=== PATIENT | female | born 1950 | race Caucasian/White ===

== ENCOUNTER → 2017-12-20 | Outpatient (CLI) | payer MEDICARE ==
--- NOTE | 2017-12-20 15:05 | BD ---
EXAMINATION TYPE: Axial Bone Density DATE OF EXAM: 12/20/2017 COMPARISON: 2011 Dexa Bone Density CLINICAL HISTORY: post menopausal Height: 5' Weight: 176 FRAX RISK QUESTIONS: History of Fracture in Adulthood: y Secondary Osteoporosis: 3. Menopause before 45: y RISK FACTORS HISTORY OF: Postmenopausal woman: Take estrogen How lon years MEDICATIONS: Additional Medications: high blood pressure, Additional History: non Hodgkin's lymphoma 2016, chemotherapy EXAM MEASUREMENTS: Bone mineral densitometry was performed using the [employer] System. Bone mineral density as measured about the Lumbar spine is: ----- L1-L4(G/cm2): 1.207 T Score Values are as follows: ----- L2: 0.7 ----- L3: 0.9 ----- L4: -0.1 ----- L1-L4: 0.2 Bone mineral density has: Increased 6.0% since study of: 05/22/2012 Bone mineral density about the R hip (g/cm2): 0.812 Bone mineral density about the L hip (g/cm2): 0.843 T Score values are as follows: -----R Neck: -1.6 -----L Neck: -1.4 -----R Total: -1.1 -----L Total: -0.6 Bone mineral density has: Decreased -7.9% since study of: 05/22/2012 IMPRESSION: Osteopenia (T Score between -2.5 and -1) at the femoral neck level in both hips remains present. There remains slightly increased risk of fracture and the patient may be considered for treatment. Re-Screen 2-5 years. NOTE: T-SCORE=SD OF THE YOUNG ADULT MEAN.
--- NOTE | 2017-12-21 12:44 | MM ---
Reason for exam: screening (asymptomatic). Last mammogram was performed 1 year and 11 months ago. History: Patient is postmenopausal. Family history of premenopausal breast cancer in mother at age 40. Taking estrogen for 27 years beginning at age 33. Physical Findings: A clinical breast exam by your physician is recommended on an annual basis and results should be correlated with mammographic findings. MG 3D Screening Mammo W/Cad Bilateral CC and MLO view(s) were taken. Prior study comparison: January 29, 2016, right breast MG 3d diag mammo w/cad RT. July 11, 2015, right breast MG 3d work up w/cad RT. The breast tissue is heterogeneously dense. This may lower the sensitivity of mammography. There is chronic nodularity in the left breast. No significant changes when compared with prior studies. ASSESSMENT: Benign, BI-RAD 2 RECOMMENDATION: Routine screening mammogram of both breasts in 1 year.
== END | disposition home or self-care (01) ==
LOC: RADMAMWWP 14:20
PROVIDERS: ATTEND Internal Medicine
DX: Z12.31 Encounter for screening mammogram for malignant neoplasm of breast (principal); M85.852 Other specified disorders of bone density and structure, left thigh; M85.851 Other specified disorders of bone density and structure, right thigh; N95.1 Menopausal and female climacteric states
CPT/HCPCS: 77063; 77067; 77080

== ENCOUNTER → 2019-08-17 | Outpatient (CLI) | payer MEDICARE ==
--- NOTE | 2019-08-17 14:41 | MM ---
Reason for exam: screening (asymptomatic). Last mammogram was performed 1 year and 8 months ago. History: Patient is postmenopausal and has history of other cancer at age 67. Family history of premenopausal breast cancer in mother at age 40. Taking estrogen for 27 years beginning at age 33. Physical Findings: A clinical breast exam by your physician is recommended on an annual basis and results should be correlated with mammographic findings. MG 3D Screening Mammo W/Cad Bilateral CC and MLO view(s) were taken. Prior study comparison: December 20, 2017, bilateral MG 3d screening mammo w/cad. January 29, 2016, right breast MG 3d diag mammo w/cad RT. There are scattered fibroglandular densities. No suspicious abnormality. No significant changes when compared with prior studies. ASSESSMENT: Negative, BI-RAD 1 RECOMMENDATION: Routine screening mammogram of both breasts in 1 year.
== END | disposition home or self-care (01) ==
LOC: RADMAMWWP 10:53
PROVIDERS: ATTEND Internal Medicine
DX: Z12.31 Encounter for screening mammogram for malignant neoplasm of breast (principal)
CPT/HCPCS: 77063; 77067

== ENCOUNTER → 2022-08-27 | Outpatient (CLI) | payer MEDICARE ==
--- NOTE | 2022-08-27 08:26 | CT ---
EXAMINATION TYPE: CT sinus wo con CT DLP: 618.10 mGycm, Automated exposure control for dose reduction was used. DATE OF EXAM: 08/27/2022 7:06 AM COMPARISON: CT sinuses 06/18/2015. CLINICAL INDICATION:Female, 72 years old with history of J01.90 chronic sinusitis; PHH, Chronic sinus itis CONTRAST: None. TECHNIQUE: Multiple thin axial images were obtained through the paranasal sinuses without the use of IV contrast. Additional coronal and sagittal reformatted images were submitted for evaluation. FINDINGS: Extensive opacification of the paranasal sinuses redemonstrated. Near complete opacification of the r ight maxillary sinus with moderate mucosal thickening of the left mastoid sinus. Near complete opacif ication of the bilateral frontal and ethmoid sinuses. Development of a calcification within the right ethmoid sinus measuring up to 7 mm. Complete opacification of the right sphenoid sinus with minimal mucosal thickening of the left sphenoid sinus. Postsurgical changes from bilateral antrostomy with op acification of the right maxillary sinus antrostomy site. No acute fracture. Bilateral aphakia. The visualized portions of the brain are unremarkable. IMPRESSION: Postsurgical changes with continued severe pansinusitis.
== END | disposition home or self-care (01) ==
LOC: RADCTMAIN 06:49
PROVIDERS: ATTEND Internal Medicine
DX: J32.4 Chronic pansinusitis (principal)
CPT/HCPCS: 70486

== ENCOUNTER → 2022-10-06 | Outpatient (CLI) | payer MEDICARE | END | disposition home or self-care (01) | LOC: LABWHC1 13:55 | PROVIDERS: ATTEND Otolaryngology | DX: I10 Essential (primary) hypertension (principal); R94.31 Abnormal electrocardiogram [ECG] [EKG] | CPT/HCPCS: 36415; 93005 ==

== ENCOUNTER → 2022-10-28 | Outpatient (CLI) | payer MEDICARE ==
[2022-10-28 21:54] LABS: Anion Gap 11.4 mmol/L (10.00-18.00); Blood Urea Nitrogen 14.4 mg/dL (9.0-27.0); Calcium 9.7 mg/dL (8.7-10.3); Carbon Dioxide 26.4 mmol/L (20.0-27.5); Magnesium 2.1 mg/dL (1.5-2.4); Non-African American GFR(CKD) 83.7 (60.0-200.0); Potassium 4.8 mmol/L (3.5-5.5)
[2022-10-28 21:59] LABS: Immunoglobulin M 71.7 mg/dL (40.0-280.0)
[2022-10-29 10:54] LABS: IgG Subclass 1 269.4 mg/dL (382.40-928.60); IgG Subclass 3 38.8 mg/dL (21.82-176.00)
== END | disposition home or self-care (01) ==
LOC: LABWHC1 12:09
PROVIDERS: ATTEND Otolaryngology
DX: J01.91 Acute recurrent sinusitis, unspecified (principal)
CPT/HCPCS: 36415; 80048; 82784; 82787; 83735

== ENCOUNTER → 2023-04-25 | Outpatient (CLI) | payer MEDICARE ==
--- NOTE | 2023-04-25 12:02 | CT ---
EXAMINATION TYPE: CT ChestAbdPelvis wo con CT DLP: 518.5 mGycm, Automated exposure control for dose reduction was used. DATE OF EXAM: 04/25/2023 11:55 AM COMPARISON: 12/05/2015. CLINICAL INDICATION:Female, 73 years old with history of C85.9 LYMPHOMA; [facility], f/u lymphoma Technique: Multiple axial images of the chest, abdomen, and pelvis were obtained. Two-dimensional cor onal and sagittal reconstructions were obtained. Contrast used: mL of , Oral contrast used: with Oral Contrast Findings: CHEST: LUNGS/ PLEURA: The lung parenchyma appears unremarkable. AIRWAY: Patent and unremarkable. HEART: Heart is mildly enlarged for size. MEDIASTINUM: No gross evidence of adenopathy. VASCULATURE: No aortic aneurysm. MUSCULOSKELETAL: No acute osseous abnormalities. SOFT TISSUES/LYMPH NODES: Unremarkable. LOWER NECK: No significant findings. ABDOMEN: ABDOMEN LIVER: Unremarkable GALLBLADDER AND BILE DUCTS: Unremarkable. PANCREAS: Lipomatous pseudohypertrophy changes. SPLEEN: Unremarkable. ADRENAL GLANDS: Unremarkable. KIDNEYS AND URETERS: No evidence of hydronephrosis or renal calculus. The ureters are unremarkable. Left renal cyst. Atrophy changes of the kidneys bilaterally. PELVIS BLADDER: Unremarkable REPRODUCTIVE: Unremarkable. ABDOMEN & PELVIS STOMACH AND BOWEL: No evidence of bowel obstruction. Scattered colonic diverticula present. There is some mild wall thickening of the sigmoid colon measuring up to 6 mm. PERITONEUM: No evidence of pneumoperitoneum. Stable right lower abdomen fluid collection measuring 7. 1 x 3.0 previously 7.1 x 2.8 cm. VASCULATURE: No evidence of aortic aneurysm. MUSCULOSKELETAL: No acute osseous abnormalities LYMPH NODES: No gross evidence for lymphadenopathy. SOFT TISSUE/ABDOMINAL WALL: Unremarkable IMPRESSION: 1. Overall stable exam without evidence of lymphadenopathy or mass. 2. Sigmoid colon wall thickening superficially correlate for colitis. 3. Persistent right lower abdomen fluid collection which may be fractionally larger versus differenc es in measuring technique compared to 12/05/2015
== END | disposition home or self-care (01) ==
LOC: RADCTMAIN 11:07
PROVIDERS: ATTEND Internal Medicine Hematology & Oncology
DX: C85.90 Non-Hodgkin lymphoma, unspecified, unspecified site (principal); K63.89 Other specified diseases of intestine
CPT/HCPCS: 71250; 74176

== ENCOUNTER → 2024-03-23 | Outpatient (CLI) | payer MEDICARE ==
--- NOTE | 2024-03-23 13:24 | US ---
EXAMINATION TYPE: US venous doppler duplex LE RT DATE OF EXAM: 03/23/2024 1:10 PM COMPARISON: NONE CLINICAL INDICATION: Female, 74 years old with history of M79.661 PAIN IN RIGHT LOWER LEG R22.41 LOCA LIZED S; rt post knee pain TECHNIQUE: The lower extremity deep venous system is examined utilizing real time linear array sonog carlitos with graded compression, color doppler sonography, and spectral doppler. SIDE PERFORMED: Right FINDINGS: VESSELS IMAGED: Common Femoral Vein Deep Femoral Vein Greater Saphenous Vein * Femoral Vein Popliteal Vein Small Saphenous Vein * Proximal Calf Veins (* superficial vessels) Right Leg: Negative for DVT Grayscale, color doppler, spectral doppler imaging performed of the deep veins of the lower extremiti es. There is a possible effusion behind the knee IMPRESSION: 1. No ultrasound evidence for deep venous thrombosis of either lower extremity. 2. There is a small amount of fluid posterior to the knee possibly related to a popliteal fossa cyst or small knee effusion. [facility], , 03/23/2024 1:22 PM
== END ==
LOC: RADUSWWP 12:42
PROVIDERS: ATTEND Internal Medicine
DX: R22.41 Localized swelling, mass and lump, right lower limb (principal)

== ENCOUNTER 2024-05-15 21:43 | Emergency (ER) | payer MEDICARE ==
--- NOTE | 2024-05-15 22:23 | ED ---
General Adult HPI - General Source: patient, family, RN notes reviewed <Kirsten Zamudio - Last Filed: 05/15/24 22:21> - General Source: patient, family, RN notes reviewed Limitations: no limitations <Kyle Espinosa - Last Filed: 05/16/24 02:23> - General Stated complaint: poss allergic reaction to antibiotic Time Seen by Provider: 05/15/24 22:00 - History of Present Illness Initial comments: Quick [id number] female presented to the emergency department for complaint of nausea, vomiting, chills. she started an antibiotic prescribed by her PCP earlier today for a UTI and possible pyelonephritis and since has been experiencing nausea and vomiting. endorses dysuria, cloudy urine, right flank pain with radiation into her mid abdomen. (Kirsten Zamudio) 74-year-old female presents emergency department complaining chills, nausea. Patient states she saw her PCP earlier today and was diagnosed with a UTI. Patient states that she think she is having a reaction to the medication because if she became more nauseated. Patient states was cloudy but denies any signific ant frequency denies any abdominal pain or back pain at this time. Denies any chest pain or shortness of breath she has non-Hodgkin's. Patient states she has had no URI symptoms. No other complaints. (Kyle Espinosa) - Related Data Home Medications Medication Instructions Recorded Confirmed Ergocalciferol (Vitamin D2) 50,000 unit PO TU 11/13/15 12/01/15 [Drisdol] Fluticasone Nasal [place] [Flonase 2 sprays EA NOSTRIL DAILY 11/13/15 12/01/15 Nasal [place]] Multivitamins, Thera [Multivitamin 1 tab PO DAILY 11/13/15 12/01/15 (formulary)] Propranolol HCl [Inderal Xl] 80 mg PO BID 11/13/15 12/01/15 amLODIPine BESYLATE [Amlodipine 5 mg PO DAILY 11/13/15 12/01/15 Besylate] cloNIDine HCL 0.3 mg PO BID 11/13/15 12/01/15 estradioL [Estradiol] 0.5 mg PO HS 11/13/15 12/01/15 rOPINIRole HCL [Requip] 0.5 mg PO BID 11/13/15 12/01/15 HYDROcodone/IBUPROFEN [Vicoprofen 1 tab PO Q4HR PRN 12/01/15 12/01/15 7.5-200 mg Tablet] Pantoprazole [Protonix] 40 mg PO AC-BRKFST 12/01/15 12/01/15 rOPINIRole HCL [Requip] 0.5 mg PO HS 12/01/15 12/01/15 Allergies Allergy/AdvReac Type Severity Reaction Status Date / Time cefdinir AdvReac Nausea & Verified 05/15/24 22:32 Vomiting Review of Systems ROS Other: All systems not noted in ROS Statement are negative. <Kirsten Zamudio - Last Filed: 05/15/24 22:21> ROS Other: All systems not noted in ROS Statement are negative. <Kyle Espinosa - Last Filed: 05/16/24 02:23> ROS Statement: Those systems with pertinent positive or pertinent negative responses have been documented in the HPI. Past Medical History Past Medical History: Blood Disorder, Deep Vein Thrombosis (DVT) Additional Past Medical History / Comment(s): "blood clots as child-denies any bleeding or clotting factor disorders."kink in bowel-bm's not regular"constipation, hemorrhoids, was told beofre that she had an enlarged heart,beginnings of cataracts in rt eye, shingles x4-last time was aprrox 1.5 years ago, uti's, anemia. has had several allergic reactions-but so far they can't figure out the offending agents. History of anemia during History of Any Multi-Drug Resistant Organisms: ESBL Date of last positivie culture/infection: 06/16/20 ESBL MDRO Source:: URINE Past Surgical History: Section, Hysterectomy Additional Past Surgical History / Comment(s): nasal sx- cartilage shaved, temporal artery sx , 2 c-sections, partial hysterectomt then 2nd sx to take the rest, colonoscopy. 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 Past Alcohol Use History: None Reported Past Drug Use History: None Reported - Past Family History Mother Family Medical History: Cancer Additional Family Medical History / Comment(s): breast cancer- at age 50 Father Family Medical History: COPD Additional Family Medical History / Comment(s): emphysema at age 65. Sister with a history of leukemia <Kirsten Zamudio - Last Filed: 05/15/24 22:21> General Exam <Kirstne Zamudio - Last Filed: 05/15/24 22:21> Limitations: no limitations General appearance: alert, in no apparent distress Head exam: Present: atraumatic, normocephalic, normal inspection Eye exam: Present: normal appearance, PERRL, EOMI. Absent: scleral icterus, conjunctival injection, periorbital swelling ENT exam: Present: normal exam, normal oropharynx, mucous membranes moist Neck exam: Present: normal inspection, full ROM. Absent: tenderness, me ningismus, lymphadenopathy Respiratory exam: Present: normal lung sounds bilaterally. Absent: respiratory distress, wheezes, rales, rhonchi, stridor Cardiovascular Exam: Present: regular rate, normal rhythm, normal heart sounds. Absent: systolic murmur, diastolic murmur, rubs, gallop, clicks GI/Abdominal exam: Present: soft, normal bowel sounds. Absent: distended, tenderness, guarding, rebound, rigid Back exam: Absent: CVA tenderness (R), CVA tenderness (L) Neurological exam: Present: alert <Kyle Espinosa - Last Filed: 05/16/24 02:23> - General Exam Comments Initial Comments: Visual Physical Exam Vital signs reviewed General: Well-appearing, nontoxic, no acute distress. Head: Normocephalic, atraumatic Eyes: PERRLA, EOMI ENT: Airway patent Chest: Nonlabored breathing Skin: No visual rash, normal skin tone Neuro: Alert and oriented 3 Musculoskeletal: No gross abnormalities (RobbKirsten) Course Vital Signs 05/15/24 05/16/24 22:30 02:05 Temperature 100.6 F H 99.2 F Pulse Rate 91 92 Respiratory 16 16 Rate Blood Pressure 168/86 155/83 O2 Sat by Pulse 97 96 Oximetry Medical Decision Making <Kirsten Zamudio - Last Filed: 05/15/24 22:21> - Lab Data Result diagrams: 05/15/24 23:00 05/15/24 23:00 <FranciscaKyle M - Last Filed: 05/16/24 02:23> - Medical Decision Making I completed the quick note portion of this chart signed Kirsten Zamudio PA-C (Kirsten Zamudio) Was pt. sent in by a medical professional or institution (HANH Rod, IDENTIFICATION CLERK, urgent care, hospital, or intermediate...) When possible be specific @ -No Did you speak to anyone other than the patient for history (EMS, parent, family, police, friend...)? What history was obtained from this source @ -No Did you review nursing and triage notes (agree or disagree)? Why? @ -I reviewed and agree with nursing and triage notes Were old charts reviewed (outside hosp., previous admission, EMS record, old EKG, old radiological studies, urgent care reports/EKG's, intermediate records)? Report findings @ -No old charts were reviewed Differential Diagnosis (chest pain, altered mental status, abdominal pain women, abdominal pain men, vaginal bleeding, weakness, fever, dyspnea, syncope, headache, dizziness, GI bleed, back pain, seizure, CVA, palpatations, mental health, musculoskeletal)? @ -Differential Abdominal Pain Women: Appendicitis, Cholecystitis, diverticulosis, ischemic bowel, pancreatitis, hepatitis, UTI, gastroenteritis, AAA, incarcerated hernia, bowel obstruction, constipation, inflammatory bowel, hepatitis, peptic ulcer disease, splenic infarction, perforated viscus, vulvitis, ovarian torsion, PID, kidney stone, placenta abruption, this is not meant to be an all-inclusive list EKG interpreted by me (3pts min.). @ -None X-rays interpreted by me (1pt min.). @ -None done CT interpreted by me (1pt min.). @ -None done U/S interpreted by me (1pt. min.). @ -None done What testing was considered but not performed or refused? (CT, X-rays, U/S, labs)? Why? @ -None What meds were considered but not given or refused? Why? @ -None Did you discuss the management of the patient with other professionals (professionals i.e. HANH Rod, IDENTIFICATION CLERK, lab, RT, psych nurse, social services counselor, news video editor, teacher, ground defence officer, pillowcase cutter)? Give summary @ -No Was smoking cessation discussed for >3mins.? @ -No Was critical care preformed (if so, how long)? @ -No Were there social determinants of health that impacted care today? How? (Homelessness, low income, unemployed, alcoholism, drug addiction, transportation, low edu. Level, literacy, decrease access to med. care, fpc, rehab)? @ -No Was there de-escalation of care discussed even if they declined (Discuss DNR or withdrawal of care, Hospice)? DNR status @ -No What co-morbidities impacted this encounter? (DM, HTN, Smoking, COPD, CAD, Cancer, CVA, ARF, Chemo, Hep., AIDS, mental health diagnosis, sleep apnea, morbid obesity)? @ -Non-Hodgkin's lymphoma Was patient admitted / discharged? Hospital course, mention meds given and route, prescriptions, significant lab abnormalities, going to OR and other pertinent info. @ -Discharge patient had negative workup including labs urinalysis viral swab. She is asymptomatic currently. Patient discharged in stable condition. Undiagnosed new problem with uncertain prognosis? @ -No Drug Therapy requiring intensive monitoring for toxicity (Heparin, Nitro, Insulin, Cardizem)? @ -No Were any procedures done? @ -No Diagnosis/symptom? @ -Nausea Acute, or Chronic, or Acute on Chronic? @ -Acute Uncomplicated (without systemic symptoms) or Complicated (systemic symptoms)? @ -Uncomplicated Side effects of treatment? @ -No Exacerbation, Progression, or Severe Exacerbation? @ -No Poses a threat to life or bodily function? How? (Chest pain, USA, AR, pneumonia, PE, COPD, DKA, ARF, appy, cholecystitis, CVA, Diverticulitis, Homicidal, Suicidal, threat to staff... and all critical care pts) @ -No (Kyle Espinosa) - Lab Data Lab Results 05/15/24 05/15/24 05/15/24 Range/Units 23:00 23:00 23:00 WBC 18.1 H (3.8-10.6) k/uL RBC 4.68 (3.80-5.40) m/uL Hgb 12.6 (11.4-16.0) gm/dL Hct 39.3 (34.0-46.0) % MCV 84.0 (80.0-100.0) fL MCH 27.0 (25.0-35.0) pg MCHC 32.2 (31.0-37.0) g/dL RDW 13.2 (11.5-15.5) % Plt Count 260 (150-450) k/uL MPV 7.1 Neutrophils % 91 % Lymphocytes % 4 % Monocytes % 2 % Eosinophils % 2 % Basophils % 0 % Neutrophils # 16.4 H (1.3-7.7) k/uL Lymphocytes # 0.8 L (1.0-4.8) k/uL Monocytes # 0.4 (0-1.0) k/uL Eosinophils # 0.4 (0-0.7) k/uL Basophils # 0.0 (0-0.2) k/uL Sodium 136 L (137-145) mmol/L Potassium 4.2 (3.5-5.1) mmol/L Chloride 102 (98-107) mmol/L Carbon Dioxide 25 (22-30) mmol/L Anion Gap 9 mmol/L BUN 21 H (7-17) mg/dL Creatinine 1.02 (0.52-1.04) mg/dL Est GFR (CKD-EPI)AfAm 63 (>60 ml/min/1.73 sqM) Est GFR (CKD-EPI)NonAf 55 (>60 ml/min/1.73 sqM) Glucose 104 H (74-99) mg/dL Plasma Lactic Acid Daniel (0.7-2.0) mmol/L Calcium 9.6 (8.4-10.2) mg/dL Total Bilirubin 0.8 (0.2-1.3) mg/dL AST 22 (14-36) U/L ALT 13 (4-34) U/L Alkaline Phosphatase 67 (38-126) U/L Total Protein 7.1 (6.3-8.2) g/dL Albumin 4.2 (3.5-5.0) g/dL Urine Color Colorless Urine Appearance Clear (Clear) Urine pH 6.0 (5.0-8.0) Ur Specific Walker 1.011 (1.001-1.035) Urine Protein Negative (Negative) Urine Glucose (UA) Negative (Negative) Urine Ketones Negative (Negative) Urine Blood Negative (Negative) Urine Nitrite Negative (Negative) Urine Bilirubin Negative (Negative) Urine Urobilinogen <2.0 (<2.0) mg/dL Ur Leukocyte Esterase Negative (Negative) Influenza Type A (PCR) (Not Detectd) Influenza Type B (PCR) (Not Detectd) RSV (PCR) (Not Detectd) SARS-CoV-2 (PCR) (Not Detectd) 05/15/24 05/16/24 Range/Units 23:00 00:54 WBC (3.8-10.6) k/uL RBC (3.80-5.40) m/uL Hgb (11.4-16.0) gm/dL Hct (34.0-46.0) % MCV (80.0-100.0) fL MCH (25.0-35.0) pg MCHC (31.0-37.0) g/dL RDW (11.5-15.5) % Plt Count (150-450) k/uL MPV Neutrophils % % Lymphocytes % % Monocytes % % Eosinophils % % Basophils % % Neutrophils # (1.3-7.7) k/uL Lymphocytes # (1.0-4.8) k/uL Monocytes # (0-1.0) k/uL Eosinophils # (0-0.7) k/uL Basophils # (0-0.2) k/uL Sodium (137-145) mmol/L Potassium (3.5-5.1) mmol/L Chloride (98-107) mmol/L Carbon Dioxide (22-30) mmol/L Anion Gap mmol/L BUN (7-17) mg/dL Creatinine (0.52-1.04) mg/dL Est GFR (CKD-EPI)AfAm (>60 ml/min/1.73 sqM) Est GFR (CKD-EPI)NonAf (>60 ml/min/1.73 sqM) Glucose (74-99) mg/dL Plasma Lactic Acid Daniel 1.3 (0.7-2.0) mmol/L Calcium (8.4-10.2) mg/dL Total Bilirubin (0.2-1.3) mg/dL AST (14-36) U/L ALT (4-34) U/L Alkaline Phosphatase (38-126) U/L Total Protein (6.3-8.2) g/dL Albumin (3.5-5.0) g/dL Urine Color Urine Appearance (Clear) Urine pH (5.0-8.0) Ur Specific Walker (1.001-1.035) Urine Protein (Negative) Urine Glucose (UA) (Negative) Urine Ketones (Negative) Urine Blood (Negative) Urine Nitrite (Negative) Urine Bilirubin (Negative) Urine Urobilinogen (<2.0) mg/dL Ur Leukocyte Esterase (Negative) Influenza Type A (PCR) Not Detected (Not Detectd) Influenza Type B (PCR) Not Detected (Not Detectd) RSV (PCR) Not Detected (Not Detectd) SARS-CoV-2 (PCR) Not Detected (Not Detectd) Disposition <Kirsten Zamudio - Last Filed: 05/15/24 22:21> Is patient prescribed a controlled substance at d/c from ED?: No Time of Disposition: 02:11 <Kyle Espinosa - Last Filed: 05/16/24 02:23> Clinical Impression: Nausea Disposition: HOME SELF-CARE Condition: Stable Instructions (If sedation given, give patient instructions): Acute Nausea and Vomiting (ED) Additional Instructions: Please return to the Emergency Department if symptoms worsen or any other concerns. Referrals: Collin Verdugo MD [Primary Care Provider] - 1-2 days
[2024-05-15 22:32] VITALS: RESP 16
[2024-05-15 23:19] LABS: Basophils % (A) 0 %; Eosinophils # (A) 0.4 k/uL (0-0.7); Eosinophils % (A) 2 %; HCT 39.3 % (34.0-46.0); HGB 12.6 gm/dL (11.4-16.0); Lymphocytes # (A) 0.8 k/uL (1.0-4.8); Lymphocytes % (A) 4 %; MCHC 32.2 g/dL (31.0-37.0); Mean Platelet Volume 7.1; Monocytes # (A) 0.4 k/uL (0-1.0); Monocytes % (A) 2 %; Neutrophils # (A) 16.4 k/uL (1.3-7.7); Neutrophils % (A) 91 %; Platelet Count 260 k/uL (150-450); RBC 4.68 m/uL (3.80-5.40); RDW 13.2 % (11.5-15.5); WBC 18.1 k/uL (3.8-10.6)
[2024-05-15 23:21] LABS: Appearance,Urine Clear (Clear); Bilirubin,Urine Negative (Negative); Blood,Urine Negative (Negative); Color,Urine Colorless; Glucose,Urine (UA) Negative (Negative); Ketones,Urine Negative (Negative); Leukocyte Esterase,Urine Negative (Negative); Nitrite,Urine Negative (Negative); Protein,Urine Negative (Negative); Specific Gravity,Urine 1.011 (1.001-1.035); Urobilinogen,Urine <2.0 mg/dL (<2.0)
[2024-05-15 23:40] LABS: ALT 13 U/L (4-34); AST 22 U/L (14-36); African American GFR (CKD) 63 (>60 ml/min/1.73 sqM); Albumin 4.2 g/dL (3.5-5.0); Alkaline Phosphatase 67 U/L (38-126); Anion Gap 9 mmol/L; Blood Urea Nitrogen 21 mg/dL (7-17); Calcium 9.6 mg/dL (8.4-10.2); Carbon Dioxide 25 mmol/L (22-30); Chloride 102 mmol/L (98-107); Glucose 104 mg/dL (74-99); Non-African American GFR(CKD) 55 (>60 ml/min/1.73 sqM); Potassium 4.2 mmol/L (3.5-5.1); Sodium 136 mmol/L (137-145); Total Bilirubin 0.8 mg/dL (0.2-1.3); Total Protein 7.1 g/dL (6.3-8.2)
[2024-05-16 02:06] VITALS: BP 155/83; PULSE 92; TEMP 99.2
== END 2024-05-16 02:14 | disposition home or self-care (01) ==
LOC: EC 21:43
DX: R11.2 Nausea with vomiting, unspecified (principal); T36.8X5A Adverse effect of other systemic antibiotics, initial encounter; Z88.1 Allergy status to other antibiotic agents
CPT/HCPCS: 36415; 80053; 81003; 83605; 85025; 87636; 93005; 99284